=== PATIENT | male | born 1980 | race Two or more races ===

== ENCOUNTER 2019-05-02 01:13 | Inpatient (IN) | payer OTHER ==
--- NOTE | 2019-05-02 01:40 | NUR ---
UPON ARRIVAL, PATIENT WANTED TO AMA. PER PATIENT, HIS CAR AND DE [place] WAS LEFT AT [facility] AND HIS PHONE WAS OUT OF BATTERY. OFFERED PHONE, PATIENT WAS ABLE TO CONTACT A FRIEND. PATIENT INSISTED TO GO HOME. ADVISED PATIENT TO BE SEEN AND EXAMINED BY MD. PER PATIENT HE HAS TO GO HOME. ADVISED PATIENT TO GO TO ER IMMEDIATELY FOR ANY WORSENING OF CONDITION. REMOVED IV LINE AND SOH ID HYDE. PATIENT SIGNED AMA FORM. PATIENT A/O X4, NO PROMINENT RESPIRATORY DISTRESS NOTED, NO WHEEZING NOTED. PATIENT LEFT THE FACILITY AMBULATORY CLAIMED A FRIEND WILL COME TO PICK HIM UP. PATIENT LEFT AT 0140. NOTIFIED BATTERY FILLER AND .
[2019-05-02] MEDS ORDERED: IV NS 0.9% 1,000 ML IV PRN (01:55)
--- NOTE | 2019-05-02 01:55 | NUR ---
INCIDENT REPORT DONE. Unique Id: [id number]
[2019-05-02] MEDS ORDERED: HYDROCODONE/APAP 10/325MG 1 EA TABLET PO PRN (02:00)
[2019-05-02] MEDS ORDERED: MAGNESIUM HYDROXIDE 30 ML UDC PO PRN (02:00)
[2019-05-02] MEDS ORDERED: ONDANSETRON HCL/PF 4 MG/2 ML VIAL IVP PRN (02:00)
[2019-05-02] MEDS ORDERED: ALBUTEROL FS 2.5 MG/0.5 ML VIAL.NEB NEB PRN (02:00)
[2019-05-02] MEDS ORDERED: IPRATROPIUM NEB FS 0.5 MG/2.5 ML AMPUL.NEB NEB PRN (02:00)
[2019-05-02] MEDS ORDERED: HYDROCODONE/APAP 5/325MG 1 EACH TABLET PO PRN (02:00)
[2019-05-02] MEDS ORDERED: ZOLPIDEM TARTRATE 5 MG TABLET PO PRN (02:00)
[2019-05-02] MEDS ORDERED: MAG HYDROX/AL HYDROX/SIMETH 30 ML UDC PO PRN (02:00)
[2019-05-02] MEDS ORDERED: ACETAMINOPHEN 325 MG TABLET PO PRN (02:00)
[2019-05-02] MEDS ORDERED: methylPREDNISolone SOD SUCC 40 MG/ML VIAL IV SCH (09:00)
== END 2019-05-02 01:40 | disposition left against medical advice (07) | DRG 141 ==
LOC: MED 01:13
PROVIDERS: ADMIT Nurse Practitioner Acute Care; ATTEND Nurse Practitioner Acute Care
DX: J45.901 Unspecified asthma with (acute) exacerbation (principal)
CPT/HCPCS: G0378

== ENCOUNTER 2019-05-02 04:56 | Emergency (ER) | payer OTHER ==
[~2019-05-02] VITALS: Ht 175.3 cm; Wt 90.3 kg
--- NOTE | 2019-05-02 05:50 | NUR ---
BIBS.C/O "HAVING SOB +WHEEZING" AUDIBLE WHEEZING NOTED. AOX4. PT PREVIOUSLY ADMITTED TO 3RD FLOOR DIRECT ADMIT FROM [place], SIGN OUT AMA TO FIND HIS CAR AND CAME BACK TO ER. IN BED 1 WITH GF AT BEDSIDE AWAITING MED EVAL.
[2019-05-02] MEDS ORDERED: IPRATROPIUM NEB FS 0.5 MG/2.5 ML AMPUL.NEB ONE (06:19)
[2019-05-02] MEDS ORDERED: ALBUTEROL FS 2.5 MG/3 ML VIAL.NEB ONE ×2 (06:19→07:03)
[2019-05-02] MEDS ORDERED: predniSONE 20 MG TABLET PO ONE (06:30)
[2019-05-02] MEDS ORDERED: IPRATROPIUM NEB FS 0.5 MG/2.5 ML AMPUL.NEB NEB ONE (06:30)
[2019-05-02] MEDS ORDERED: ALBUTEROL FS 2.5 MG/3 ML VIAL.NEB NEB ONE (06:30)
[2019-05-02] MEDS ORDERED: predniSONE 20 MG TABLET ONE (06:50)
[2019-05-02] MEDS ORDERED: ALBUTEROL SULFATE 8 GM HFA.AER.AD IH ONE (07:00)
--- NOTE | 2019-05-02 07:13 | NUR ---
PATIENT RECEIVED RESTING INSIDE ROOM. A/O X 4. NO ACUTE DISTRESS AT THIS TIME. ONGOING BREATHING TX. PATIENT DENIES ANY PAIN OR DISCOMFORT. CONNECTED TO MONITOR. WILL CONTINUE TO MONITOR
[2019-05-02 09:42] VITALS: BP 133/80
--- NOTE | 2019-05-02 09:42 | NUR ---
Patient discharged to home in stable condition. Written and verbal after care instructions given. Patient verbalizes understanding of instruction. Written prescriptions provided to patient
== END 2019-05-02 09:43 | disposition home or self-care (01) ==
LOC: ER 04:57
DX: J45.901 Unspecified asthma with (acute) exacerbation (principal); I10 Essential (primary) hypertension; Z88.1 Allergy status to other antibiotic agents; Z88.2 Allergy status to sulfonamides
CPT/HCPCS: 71045; 93005; 94640; 94644; 99285; J7512